=== PATIENT | female | born 1960 | race Two or more races ===

== ENCOUNTER 2017-05-02 06:21 | Day surgery (SDC) | payer OTHER ==
[2017-04-28 14:46] VITALS: BMI 29.2
[~2017-05-02 06:21] MED LIST: DEXAMETHASONE SOD PHOSPHATE 10 MG/ML 1 ML VIAL IV ONE; HYDROmorphone 1 MG/ML 1 ML SYRINGE IVP PRN; LACTATED RINGERS 1,000 ML IV SCH; ONDANSETRON 4 MG/2 ML VIAL IVP ONE; Pre Op ABX Message 1 EACH MISC MISCELLANE ONE
[2017-05-02 06:40] VITALS: TEMP 97
[2017-05-02] MEDS ORDERED: LIDOCAINE 1% 20 ML VIAL (10MG/ML) FOR IV START INTRADERMA ONE (06:46)
[2017-05-02] MEDS ORDERED: BUPIVACAINE LIPOSOME/PF 1.3% 20 ML, SODIUM CHLORIDE 0.9% 10 ML MISCELLANE STA ×2 (07:23)
[2017-05-02] MEDS ORDERED: ceFAZolin 2 GM in SODIUM CHLORIDE 0.9% 100 ML IVPB STA (07:25)
--- NOTE | 2017-05-02 07:25 | P.GSHP ---
History of Present Illness H&P Date: 05/02/17 CHIEF COMPLAINT: Symptomatic hemorrhoids and rectal bleeding HISTORY OF PRESENT ILLNESS: The patient is a 56-year-old female who presents with symptomatic hemorrhoids and rectal bleeding. She now presents for definitive surgical intervention. PAST MEDICAL HISTORY: Please see list. PAST SURGICAL HISTORY: Please see list. MEDICATIONS: Please see list. ALLERGIES: Please see list. SOCIAL HISTORY: No illicit drug use FAMILY HISTORY: No reports of Crohn disease or ulcerative colitis. REVIEW OF ORGAN SYSTEMS: CONSTITUTIONAL: No reports of fevers or chills. PHYSICAL EXAM: VITAL SIGNS: Stable GENERAL: Well-developed pleasant in no acute distress. HEENT: No scleral icterus. Extraocular movements grossly intact. Moist buccal mucosa. NECK: Supple without lymphadenopathy. CHEST: Unlabored respirations. Equal bilateral excursions. CARDIOVASCULAR: Regular rate and rhythm. Distal 2+ pulses. ABDOMEN: Soft, nontender, nondistended. MUSCULOSKELETAL: No clubbing, cyanosis, or edema. ASSESSMENT: 1. Symptomatic hemorrhoids, grade 3. PLAN: 1. Recommend proceeding hemorrhoidectomy. Past Medical History Past Medical History: Fibromyalgia, Osteoarthritis (OA) Additional Past Medical History / Comment(s): migranes, hiatal hernia. Pt currently has poision katarina on hands, stomach and left foot History of Any Multi-Drug Resistant Organisms: None Reported Past Surgical History: Heart Catheterization, Tubal Ligation Additional Past Surgical History / Comment(s): colonoscopy Past Anesthesia/Blood Transfusion Reactions: No Reported Reaction Smoking Status: Never smoker - Past Family History Father Family Medical History: Cancer Additional Family Medical History / Comment(s): prostate Medications and Allergies Home Medications Medication Instructions Recorded Confirmed Type Biotin 1,000 mcg PO DAILY 04/28/17 05/02/17 History Calcium/Magnesium/Zinc 1 each PO DAILY 04/28/17 05/02/17 History [Oarulea-Xzjxqkpon-Nnqe Tablet] Cholecalciferol (Vitamin D3) 2,000 unit PO DAILY 04/28/17 05/02/17 History [Vitamin D3] Diclofenac Sodium [Diclofenac 100 mg PO DAILY 04/28/17 05/02/17 History Sodium ER] FLUoxetine HCL [PROzac] 40 mg PO DAILY 04/28/17 05/02/17 History Omeprazole [PriLOSEC] 20 mg PO HS 04/28/17 05/02/17 History traZODone HCL 50 mg PO HS 04/28/17 05/02/17 History Allergies Allergy/AdvReac Type Severity Reaction Status Date / Time No Known Allergies Allergy Verified 05/02/17 06:37 Surgical - Exam Vital Signs Temp Pulse Resp BP Pulse Ox 97 F L 60 16 94/63 96 05/02/17 06:39 05/02/17 06:39 05/02/17 06:39 05/02/17 06:39 05/02/17 06:39
[2017-05-02] MEDS ORDERED: fentaNYL (PF) 50 MCG/ML 2 ML AMP ONE (07:36)
[2017-05-02] MEDS ORDERED: MIDAZOLAM 2 MG/2 ML VIAL ONE (07:36)
--- NOTE | 2017-05-02 08:19 | P.PCN ---
Date of Procedure: 05/02/17 Preoperative Diagnosis: Postoperative Diagnosis: Procedure(s) Performed: Implants: Indications for Procedure: Operative Findings: Description of Procedure: SURGEON: CODIE HERNANDEZ MD GEOLOGY SCIENTIST: NONE. PREOPERATIVE DIAGNOSES: 1. History of complicated internal hemorrhoids, grade 4. 2. History of complicated external hemorrhoids, grade 4. 3. History of rectal bleeding. 4. Depression. 5. Gastroesophageal reflux disease. POSTOPERATIVE DIAGNOSES: 1. History of complicated internal hemorrhoids, grade 4. 2. History of complicated external hemorrhoids, grade 4. 3. History of rectal bleeding. 4. Depression. 5. Gastroesophageal reflux disease. OPERATION: 1. Excision of internal and external hemorrhoids x 3 using LigaSure. ANESTHESIA: MAC with Exparel mixture. ESTIMATED BLOOD LOSS: 2 mL. PATHOLOGY: 1. Internal, external hemorrhoidal complex x 3. FINDINGS: 1. Grade 4 internal/external hemorrhoidal cushion 3 excised. 2. No anal stricture upon excision of hemorrhoidal complexes. INDICATIONS: The patient is a 56-year-old female who presents with rectal bleeding including complicated internal/external hemorrhoids. She completed a colonoscopy. Surgical intervention was described for hemorrhoidectomy. Benefits and risks of the procedure, including bleeding, infection, incontinence, recurrent pain and recurrence of the hemorrhoids were discussed in detail. Informed consent was obtained. DESCRIPTION: Patient was brought to the operating room. After spinal anesthetic and IV sedation, she was then repositioned the prone jackknife position. Next, the perineum and buttocks was spread apart using Mastisol. The perineum was then prepped and draped in standard sterile fashion using Betadine. Preoperative medication was confirmed. Prior to incision, a timeout protocol was confirmed with surgical team. Initially 2 fingers was easily inserted for dilation of the anus. A perineal block using Exparel was placed. Grade 4 hemorrhoids along all 3 quadrants were identified. Next, using a Hill-Felipe anoscope, each hemorrhoidal cushion was addressed using a hand-held LigaSure after elevating each hemorrhoidal complex using forceps. At the end of the case, digital evaluation were performed without any features of the anal stricture or stenosis. At the 6-o'clock position, the anal muscle fiber was identified. Hemostasis was checked. Several 4 x 4 gauze with bacitracin ointment and mesh underwear was placed. At the end of the procedure, needle, sponge, and counts had been verified correct by the surgical orderly. The patient then had tolerated the procedure well. Intraoperative findings including postoperative care instructions were discussed. Plan - Discharge Summary New Discharge Prescriptions: No Action Omeprazole [PriLOSEC] 20 mg PO HS traZODone HCL 50 mg PO HS Diclofenac Sodium [Diclofenac Sodium ER] 100 mg PO DAILY FLUoxetine HCL [PROzac] 40 mg PO DAILY Cholecalciferol (Vitamin D3) [Vitamin D3] 2,000 unit PO DAILY Calcium/Magnesium/Zinc [Xfbqcac-Kmqwgkdvq-Pdix Tablet] 1 each PO DAILY Biotin 1,000 mcg PO DAILY Discharge Medication List Biotin 1,000 mcg PO DAILY 04/28/17 [History] Calcium/Magnesium/Zinc [Fymlgee-Zbvsavott-Dbad Tablet] 1 each PO DAILY 04/28/17 [History] Cholecalciferol (Vitamin D3) [Vitamin D3] 2,000 unit PO DAILY 04/28/17 [History] Diclofenac Sodium [Diclofenac Sodium ER] 100 mg PO DAILY 04/28/17 [History] FLUoxetine HCL [PROzac] 40 mg PO DAILY 04/28/17 [History] Omeprazole [PriLOSEC] 20 mg PO HS 04/28/17 [History] traZODone HCL 50 mg PO HS 04/28/17 [History]
[2017-05-02] MEDS ORDERED: IV FLUID CONTINUATION 1,000 ML IV ONE (09:59)
[2017-05-02 12:29] VITALS: BP 102/62; PULSE 59; RESP 18
== END 2017-05-02 13:26 | disposition home or self-care (01) ==
LOC: OR 06:21
PROVIDERS: ATTEND Surgery Plastic and Reconstructive Surgery
DX: K64.3 Fourth degree hemorrhoids (principal); K21.9 Gastro-esophageal reflux disease without esophagitis; F32.9 Major depressive disorder, single episode, unspecified; M79.7 Fibromyalgia; M19.90 Unspecified osteoarthritis, unspecified site; L23.7 Allergic contact dermatitis due to plants, except food; Z79.51 Long term (current) use of inhaled steroids; Z79.899 Other long term (current) drug therapy
CPT/HCPCS: 46260; J2250; J1100; J0690; J2405; J3010; C9290; 88304